=== PATIENT | female | born 1995 | race Caucasian/White ===

== ENCOUNTER 2017-03-12 13:29 | Emergency (ER) | payer BC, MEDICAID ==
--- NOTE | 2017-03-12 14:11 | EDM.PDOC ---
ED HPI GENERAL MEDICAL PROBLEM - General Chief Complaint: Syncope Stated Complaint: FAINTED Time Seen by Provider: 03/12/17 14:04 Source of Information: Reports: Patient, Family, RN Notes Reviewed History Limitations: Reports: No Limitations - History of Present Illness INITIAL COMMENTS - FREE TEXT/NARRATIVE: 21-year-old female presents emergency department today following a syncopal event, she was in the shower developed a bloody nose next thing she knew she awoke on the ground she denies injuring herself, she has had problems with this in the past couple years ago had what was believed to be a vasovagal maneuver no etiology has been discovered headache Pain Score (Numeric/FACES): 4 - Related Data Allergies Allergy/AdvReac Type Severity Reaction Status Date / Time Sulfa (Sulfonamide Allergy Severe Hives Verified 03/08/13 07:53 Antibiotics) amoxicillin [Amoxicillin] Allergy Intermediate Hives Verified 03/08/13 07:54 azithromycin Allergy Hives Verified 03/12/17 13:57 Home Meds: Home Meds NK [No Known Home Meds] 03/08/13 [History] Past Medical History - Past Health History Medical/Surgical History: Denies Medical/Surgical History Social & Family History - Tobacco Use Smoking Status *Q: Never Smoker Second Hand Smoke Exposure: No - Alcohol Use Days Per Week of Alcohol Use: 0 - Recreational Drug Use Recreational Drug Use: No ED ROS GENERAL - Review of Systems Review Of Systems: See Below Constitutional: Reports: No Symptoms HEENT: Reports: No Symptoms Respiratory: Reports: No Symptoms Cardiovascular: Reports: Syncope GI/Abdominal: Reports: No Symptoms : Reports: No Symptoms - Physical Exam Exam: See Below Exam Limited By: No Limitations General Appearance: Alert, WD/WN, No Apparent Distress Neck: Normal Inspection, Supple, Non-Tender, Full Range of Motion Respiratory/Chest: No Respiratory Distress, Lungs Clear, Normal Breath Sounds, No Accessory Muscle Use Cardiovascular: Normal Peripheral Pulses, Regular Rate, Rhythm, No Murmur Course - Vital Signs Last Recorded V/S: Last Vital Signs Temp 96.1 F 03/12/17 13:59 Pulse 69 03/12/17 15:09 Resp 12 03/12/17 15:09 BP 113/60 03/12/17 15:09 Pulse Ox 98 03/12/17 15:09 - Orders/Labs/Meds Orders: Active Orders 24 hr Category Date Time Status EKG Documentation Completion [RC] ASDIRECTED Care 03/12/17 14:09 Active EKG 12 Lead [EK] Stat Ther 03/12/17 14:08 Ordered Labs: Laboratory Tests 03/12/17 03/12/17 Range/Units 14:08 14:08 WBC 5.7 (4.5-11.0) K/uL RBC 4.81 (3.30-5.50) M/uL Hgb 14.3 (12.0-15.0) g/dL Hct 41.3 (36.0-48.0) % MCV 86 (80-98) fL MCH 30 (27-31) pg MCHC 35 (32-36) % Plt Count 230 (150-400) K/uL Neut % (Auto) 60 (36-66) % Lymph % (Auto) 29 (24-44) % [place] % (Auto) 10 H (2-6) % Eos % (Auto) 1 L (2-4) % Baso % (Auto) 1 (0-1) % Sodium 140 (140-148) mmol/L Potassium 3.9 (3.6-5.2) mmol/L Chloride 103 (100-108) mmol/L Carbon Dioxide 25 (21-32) mmol/L Anion Gap 11.6 (5.0-14.0) mmol/L BUN 7 (7-18) mg/dL Creatinine 0.7 (0.6-1.0) mg/dL Est Cr Clr Drug Dosing 106.93 mL/min Estimated GFR (MDRD) > 60 (>60) Glucose 92 (74-106) mg/dL Calcium 9.0 (8.5-10.1) mg/dL Total Bilirubin 1.0 D (0.2-1.0) mg/dL AST 20 (15-37) U/L ALT 17 (12-78) U/L Alkaline Phosphatase 65 (46-116) U/L Total Protein 7.0 (6.4-8.2) g/dL Albumin 4.2 (3.4-5.0) g/dL Globulin 2.8 (2.3-3.5) g/dL Albumin/Globulin Ratio 1.5 (1.2-2.2) Departure - Departure Time of Disposition: 15:18 Disposition: Home, Self-Care 01 Condition: Good Clinical Impression: Syncope Qualifiers: Syncope type: vasovagal syncope Qualified Code(s): R55 - Syncope and collapse - Discharge Information Referrals: PCP,None [Primary Care Provider] - Forms: ED Department Discharge Additional Instructions: Please followup with your primary care provider in 3-5 days if not better, please call return to the emergency department with worsening of symptoms. - My Orders Last 24 Hours: My Active Orders 03/12/17 14:08 EKG 12 Lead [EK] Stat 03/12/17 14:09 EKG Documentation Completion [RC] ASDIRECTED - Assessment/Plan Last 24 Hours: My Active Orders 03/12/17 14:08 EKG 12 Lead [EK] Stat 03/12/17 14:09 EKG Documentation Completion [RC] ASDIRECTED Plan: Assessment Acuity = acute Site and laterality = vasovagal Etiology = unclear etiology Manifestations = none Location of injury = Home Lab values = CBC, CMP unremarkable EKG EKG demonstrates normal sinus rhythm there is no atrial enlargement there is no ventricular enlargement there is no axis deviation no T wave inversions I don't appreciate any ST depressions or elevations no Q waves noted good R wave progression Plan I did review lab work EKG results with her she had no symptoms while emergency department plan is follow-up with primary care 3-5 days for further evaluation This note was dictated using [employer] voice recognition software please call with any questions on syntax or berta.
== END 2017-03-12 15:27 | disposition home or self-care (01) ==
LOC: JP.ED 13:29
DX: R55 Syncope and collapse (principal); Z88.2 Allergy status to sulfonamides; Z88.1 Allergy status to other antibiotic agents
CPT/HCPCS: 36415; 80053; 85025; 93005; 93010; 99284-25

== ENCOUNTER 2018-08-22 08:51 | Emergency (ER) | payer MEDICAID ==
[2018-08-22] MEDS ORDERED: Acetaminophen 325 MG Tab PO ONE (09:45)
--- NOTE | 2018-08-22 09:47 | EDM.PDOC ---
ED HPI GENERAL MEDICAL PROBLEM - General Chief Complaint: Syncope Stated Complaint: FAINTED 2X THIS AM Time Seen by Provider: 08/22/18 09:30 Source of Information: Reports: Patient, Family, Old Records History Limitations: Reports: No Limitations - History of Present Illness INITIAL COMMENTS - FREE TEXT/NARRATIVE: 22 yo female here after passing out twice this morning about 5 min apart. She was putting in her earrings the first time she passed out. Has not had fever, vomiting, diarrhea, or bleeding. Has passed out several times in the past attributed to vasovagal. No new meds. Here with her mother with whom she resides. 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 (see below) (none) Headache Pain Score (Numeric/FACES): 7 - Related Data Allergies Allergy/AdvReac Type Severity Reaction Status Date / Time Sulfa (Sulfonamide Allergy Severe Hives Verified 03/08/13 07:53 Antibiotics) amoxicillin [Amoxicillin] Allergy Intermediate Hives Verified 03/08/13 07:54 azithromycin Allergy Hives Verified 03/12/17 13:57 clindamycin Allergy Hives Verified 08/22/18 09:16 Home Meds: Home Meds NK [No Known Home Meds] 03/08/13 [History] Past Medical History - Past Health History Medical/Surgical History: Denies Medical/Surgical History Genitourinary History: Reports: UTI, Recurrent 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 Social & Family History - Tobacco Use Smoking Status *Q: Never Smoker - Caffeine Use Caffeine Use: Reports: None - Recreational Drug Use Recreational Drug Use: No ED ROS GENERAL - Review of Systems Review Of Systems: See Below Constitutional: Reports: No Symptoms HEENT: Reports: No Symptoms Respiratory: Reports: No Symptoms Cardiovascular: Reports: Syncope Endocrine: Reports: No Symptoms GI/Abdominal: Reports: No Symptoms : Reports: No Symptoms Musculoskeletal: Reports: No Symptoms Skin: Reports: No Symptoms Neurological: Reports: Headache (posterior since pass out spell) Psychiatric: Reports: No Symptoms - Physical Exam Exam: See Below Exam Limited By: No Limitations General Appearance: Alert, WD/WN, No Apparent Distress Eye Exam: Bilateral Eye: Normal Inspection Ears: Normal External Exam, Normal Canal, Hearing Grossly Normal Nose: Normal Inspection, Normal Mucosa, No Blood Throat/Mouth: Normal Inspection, Normal Lips, Normal Oropharynx, Normal Voice, No Airway Compromise Head Exam: Atraumatic, Normocephalic Neck: Normal Inspection Respiratory/Chest: No Respiratory Distress, Lungs Clear, Normal Breath Sounds, No Accessory Muscle Use Cardiovascular: Regular Rate, Rhythm, No Edema GI/Abdominal: Normal Bowel Sounds, Soft, Non-Tender, No Distention Neuro Exam (Abbreviated): Alert, Oriented, CN II-XII Intact, Normal Cognition, No Motor/Sensory Deficits Back Exam: Normal Inspection. No: CVA Tenderness (R), CVA Tenderness (L) Extremities: Normal Inspection, Normal Range of Motion, Non-Tender, No Pedal Edema Psychiatric: Normal Affect, Normal Mood Skin Exam: Warm, Dry, Intact, Normal Color, No Rash Course - Vital Signs Last Recorded V/S: Last Vital Signs Temp 35.1 C L 08/22/18 09:15 Pulse 69 08/22/18 09:15 Resp 16 08/22/18 09:15 BP 117/59 L 08/22/18 09:15 Pulse Ox 98 08/22/18 09:15 Orthostatic Blood Pressure [ 109/60 Standing] Orthostatic Blood Pressure [ 104/62 Sitting] Orthostatic Blood Pressure [ 106/57 Supine] - Orders/Labs/Meds Orders: Active Orders 24 hr Category Date Time Status Orthostatic Vital Signs [RC] ASDIRECTED Care 08/22/18 09:11 Active Labs: Laboratory Tests 08/22/18 08/22/18 08/22/18 Range/Units 09:50 09:50 10:31 WBC 4.1 L (4.5-11.0) K/uL RBC 4.36 (3.30-5.50) M/uL Hgb 12.8 (12.0-15.0) g/dL Hct 39.0 (36.0-48.0) % MCV 89 (80-98) fL MCH 29 (27-31) pg MCHC 33 (32-36) % Plt Count 201 (150-400) K/uL Sodium 140 (140-148) mmol/L Potassium 3.6 (3.6-5.2) mmol/L Chloride 105 (100-108) mmol/L Carbon Dioxide 26 (21-32) mmol/L Anion Gap 8.6 (5.0-14.0) mmol/L BUN 9 (7-18) mg/dL Creatinine 0.7 (0.6-1.0) mg/dL Est Cr Clr Drug Dosing 106.05 mL/min Estimated GFR (MDRD) > 60 (>60) Glucose 94 (74-106) mg/dL Calcium 8.9 (8.5-10.1) mg/dL Urine Color Yellow Urine Appearance Cloudy Urine pH 5.0 (4.5-8.0) Ur Specific [place] 1.030 (1.008-1.030) Urine Protein Trace (NEGATIVE) mg/dL Urine Glucose (UA) Normal (NEGATIVE) mg/dL Urine Ketones Negative (NEGATIVE) mg/dL Urine Occult Blood Negative (NEGATIVE) Urine Nitrite Negative (NEGATIVE) Urine Bilirubin Negative (NEGATIVE) Urine Urobilinogen Normal (NORMAL) mg/dL Ur Leukocyte Esterase Trace (NEGATIVE) Urine RBC 0-5 (0-5) Urine WBC 5-10 H (0-5) Ur Epithelial Cells Moderate Amorphous Sediment Not seen Urine Bacteria Moderate Urine Mucus Moderate Urine HCG, Qual 08/22/18 Range/Units 10:31 WBC (4.5-11.0) K/uL RBC (3.30-5.50) M/uL Hgb (12.0-15.0) g/dL Hct (36.0-48.0) % MCV (80-98) fL MCH (27-31) pg MCHC (32-36) % Plt Count (150-400) K/uL Sodium (140-148) mmol/L Potassium (3.6-5.2) mmol/L Chloride (100-108) mmol/L Carbon Dioxide (21-32) mmol/L Anion Gap (5.0-14.0) mmol/L BUN (7-18) mg/dL Creatinine (0.6-1.0) mg/dL Est Cr Clr Drug Dosing mL/min Estimated GFR (MDRD) (>60) Glucose (74-106) mg/dL Calcium (8.5-10.1) mg/dL Urine Color Urine Appearance Urine pH (4.5-8.0) Ur Specific [place] (1.008-1.030) Urine Protein (NEGATIVE) mg/dL Urine Glucose (UA) (NEGATIVE) mg/dL Urine Ketones (NEGATIVE) mg/dL Urine Occult Blood (NEGATIVE) Urine Nitrite (NEGATIVE) Urine Bilirubin (NEGATIVE) Urine Urobilinogen (NORMAL) mg/dL Ur Leukocyte Esterase (NEGATIVE) Urine RBC (0-5) Urine WBC (0-5) Ur Epithelial Cells Amorphous Sediment Urine Bacteria Urine Mucus Urine HCG, Qual Negative Meds: Medications Discontinued Medications Generic Name Dose Route Start Last Admin Trade Name Gregg PRN Reason Stop Dose Admin Acetaminophen 650 mg 08/22/18 09:45 08/22/18 09:54 Tylenol PO 08/22/18 09:46 650 mg NOW ONE Administration Departure - Departure Time of Disposition: 10:41 Disposition: Home, Self-Care 01 Condition: Fair Clinical Impression: Syncope Qualifiers: Syncope type: vasovagal syncope Qualified Code(s): R55 - Syncope and collapse - Discharge Information *PRESCRIPTION DRUG MONITORING PROGRAM REVIEWED*: No *COPY OF PRESCRIPTION DRUG MONITORING REPORT IN PATIENT EDA: No Instructions: Syncope, [id number] Referrals: PCP,None [Primary Care Provider] - Forms: ED Department Discharge Additional Instructions: Drink enough fluids so that your urine is very light yellow at all times. If you feel like you might pass out sit down with your head between your knees. Return your Event Recorder for assessment when done with it. F/U with your provider after turning in your recorder( a few days later). Return here as needed. - My Orders Last 24 Hours: My Active Orders 08/22/18 09:11 Orthostatic Vital Signs [RC] ASDIRECTED - Assessment/Plan Last 24 Hours: My Active Orders 08/22/18 09:11 Orthostatic Vital Signs [RC] ASDIRECTED
== END 2018-08-22 12:06 | disposition home or self-care (01) ==
LOC: JP.ED 08:51
DX: R55 Syncope and collapse (principal); Z88.2 Allergy status to sulfonamides; Z88.1 Allergy status to other antibiotic agents
CPT/HCPCS: 36415; 80048; 81001; 81025; 85027; 93270; 99283; A9270

== ENCOUNTER 2021-09-26 11:11 | Emergency (ER) | payer MEDICAID ==
[2021-09-26] MEDS ORDERED: Acetaminophen 325 MG Tab PO ONE (13:38)
[2021-09-26] MEDS ORDERED: Ondansetron 4 MG Tab.DIS PO ONE (13:40)
[2021-09-26 14:13] LABS: ESTIMATED GFR 125 mL/min (>60)
[2021-09-26 15:28] LABS: CORONAVIRUS COVID-19 NAA NEGATIVE (NEGATIVE)
== END 2021-09-26 16:00 | disposition home or self-care (01) ==
LOC: JP.ED 11:11
DX: J02.9 Acute pharyngitis, unspecified (principal); F17.210 Nicotine dependence, cigarettes, uncomplicated; Z88.2 Allergy status to sulfonamides; Z88.0 Allergy status to penicillin; Z88.1 Allergy status to other antibiotic agents; Z79.899 Other long term (current) drug therapy; Z20.822 Contact with and (suspected) exposure to COVID-19
CPT/HCPCS: 0241U; 36415; 80053; 85025; 86308; 87081; 87880; 99284; A9270; Q0162